=== PATIENT | male | born 1980 | race Caucasian/White ===

== ENCOUNTER 2016-11-18 05:40 | Emergency (ER) | payer SELFPAY ==
[~2016-11-18] VITALS: Ht 170.2 cm; Wt 87.0 kg
[2016-11-18 05:43] VITALS: Ht 170.2 cm; Wt 87.0 kg
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
[2016-11-18] MEDS ORDERED: IBUPROFEN 800 MG TAB PO ONE (07:30)
--- NOTE | 2016-11-18 07:45 | RADRPT ---
PROCEDURE: XR Chest. CLINICAL INDICATION: chest pain TECHNIQUE: Single frontal view of the chest was obtained COMPARISON: None FINDINGS: The heart and mediastinum are within normal limits. The lungs are clear. There is no pleural effusion or pneumothorax. RPTAT: AA IMPRESSION: No acute disease. .Alonso Patel MD, Date Time Electronically viewed and signed by .Alonso Patel MD, on 11/18/2016 07:44 .S/
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
[2016-11-18] MEDS ORDERED: IBUP-1542 PO (09:28)
[2016-11-18] MEDS ORDERED: HYDROCODONE/APAP (5/325) TAB PO ONE (10:00)
[2016-11-18] MEDS ORDERED: HYDR-906 PO (10:09)
[2016-11-18 10:15] VITALS: BP 155/88; PULSE 89; RESP 18; TEMP 98.8
== END 2016-11-18 10:20 | disposition home or self-care (01) ==
LOC: FTE 05:40
DX: S29.9XXA Unspecified injury of thorax, initial encounter (principal); F17.210 Nicotine dependence, cigarettes, uncomplicated; V43.52XA Car driver injured in collision with other type car in traffic accident, initial encounter
CPT/HCPCS: 71010; 71100